=== PATIENT | male | born 1980 | race Caucasian/White ===

== ENCOUNTER 2016-08-09 06:51 | Emergency (ER) | payer OTHER ==
[~2016-08-09] VITALS: Ht 190.5 cm; Wt 100.0 kg
[2016-08-09 06:55] VITALS: BP 120/67; PULSE 83; RESP 18; O2SAT 100
--- NOTE | 2016-08-09 07:03 | ED.REPORT ---
HPI-General Illness Date of Service Aug 09, 2016 ED Provider: Amanuel Peña MD The patient is a 35 year old male who presents to the ED due to severe diarrhea starting last night. Pt reports that he has severe abdominal cramps and 4 episodes of watery, green diarrhea since onset and c/o associated nausea, fever , and productive cough with clear phlegm for 3 days. He describes his face was going numb just on the right side an hour ago and his lips are still numb. He went to [facility] previous to [facility] for the same symptoms, but after a failed IV attempt he got frustrated, angry, and stormed out of the hospital. Pt denies vomiting, hematochezia, dizziness, vertigo, or abnormal vision. He is allergic to Penicillin. 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 Nursing Notes Stated Complaint: ABDOMINAL PAIN Chief Complaint: Male Abdominal Pain Nursing Notes Reviewed: Yes Allergies: Coded Allergies: Penicillins (Verified Allergy, Unknown, 08/09/16) Scheduled PRN Promethazine (Promethazine) 25 Mg Tablet 25 MG PO Q6H PRN PRN For Nausea General Time Seen by MD: 07:03 Chief Complaint Diarrhea Hx Obtained From: Patient Arrived By: Walk-in Sudden in Onset?: Yes Onset Occurred: 1 day ago Symptom Duration: Since onset Location: : Abdomen Quality: Cramping Radiation: : Does not radiate Severity: Current: Mild Recent Healthcare: Recent doctor visit Similar Sx Previous: Yes Past Medical History Past Medical History Negative Past Surgical History denies Smoking History Current Every Day Smoker Social History Alcohol Use: Denies alcohol use Drug Use: In recovery, Other (heroin) Other Social History: Local resident Ambulatory Status Independent Review of Systems Full Review of Systems Constitutional: Reports: Fever Respiratory: Reports: Prod cough, clear GI: Reports: Abdominal pain (cramping), Diarrhea, Nausea, Denies: Hematochezia, Vomiting Neurologic: Reports: Numbness (fingers, lips, right side of face ), Denies: Dizziness Complete sys rev & neg: except as marked. Physical Exam Vital Signs Vital Signs Date Time Temp Pulse Resp B/P Pulse Ox O2 Delivery O2 Flow Rate FiO2 08/09/16 10:37 36.2 66 16 117/66 100 Room Air 08/09/16 10:00 66 16 117/66 100 Room Air 08/09/16 06:55 36.2 83 18 120/67 100 Room Air Initial VS: Reviewed General/Constitutional: Well-developed, Well-nourished Head / Eyes: Atraumatic, Normocephalic, PERRL ENT: Mucous membranes moist, Conjunctiva normal, No scleral icterus Neck: Supple, Non-tender, Full range of motion Respiratory: Breath sounds normal, Clear to auscultation, No respiratory distress Cardiovascular: Regular rate & rhythm, Heart sounds normal, Intact distal pulses Lymphatic: No lymphadenopathy Skin: Warm, Dry, No cyanosis Neurologic: Alert, Oriented, Nonfocal Psychiatric: Mood/affect normal, Behavior normal, Normal thought content Tenderness/Guarding/Rebound: Positive: Tender LLQ... (moderately), Tender RLQ... (moderately) Interpretation & Diagnostics Interpretation & Diagnostics: BRAIN MRI IMPRESSION: 1. No acute process. No recent infarct. 2. Sinus disease. Dictated by: Jerman Angulo M.D. on 08/09/2016 at 9:51 Approved by: Jerman Angulo M.D. on 08/09/2016 at 9:52 Lab Results Interpretation Result Diagram: 08/09/16 0740 08/09/16 0740 Test 08/09/16 07:40 White Blood Count 8.9th/mm3 (3.8-10.1) Red Blood Count 5.28mil/mm3 (4.40-5.80) Hemoglobin 15.4g/dL (13.8-17.2) Hematocrit 45.3% (41.0-50.0) Mean Corpuscular Volume 85.8fL (81-100) Mean Corpuscular Hemoglobin 29.2pg (27.0-35.0) Mean Corpuscular Hemoglobin Concent 34.0% (32.0-37.0) Red Cell Distribution Width 12.8% (12.3-15.4) Platelet Count 250bil/L (150-400) Neutrophils (%) (Auto) 69.3% (40-74) Lymphocytes (%) (Auto) 17.2% (14-46) Monocytes (%) (Auto) 11.8% (4-12) Eosinophils (%) (Auto) 1.0% (0-5) Basophils (%) (Auto) 0.5% (0-3) Sodium Level 139mEq/L (134-144) Potassium Level 3.5mEq/L (3.5-5.2) Chloride Level 98mEq/L (97-108) Carbon Dioxide Level 28mmol/L (18-29) Blood Urea Nitrogen 11mg/dL (6-20) Creatinine 0.74mg/dL (0.76-1.27) Estimat Glomerular Filtration Rate 129mL/min (>59) Glucose Level 106mg/dL (60-99) Calcium Level 9.1mg/dL (8.5-10.1) Magnesium Level 2.2mg/dL (1.6-2.6) Total Bilirubin 0.4mg/dL (0.0-1.2) Aspartate Amino Transf (AST/SGOT) 25U/L (0-50) Alanine Aminotransferase (ALT/SGPT) 29U/L (0-44) Alkaline Phosphatase 67U/L (25-150) Total Protein 7.8g/dL (6.4-8.4) Albumin 4.4g/dL (3.4-5.0) Lipase 23U/L (13-60) Re-Eval/Medical Decision Med Decision/Clinical Course Given the onset of the numbness in the fourth and fifth fingers of the right upper extremity prior to the onset of the GI symptoms it seemed prudent to definitively exclude a central nervous system problem. He also had transient right facial numbness as well. MRI of course is negative and I do not believe further evaluation for the neurologic deficit is necessary at this moment. GI symptoms or nicely controlled with symptomatic therapy. Time of Eval: 09:41 Patient Status: Mild relief, Pain improved Re-Evaluation/Progress Note: Pt rechecked. His friend reports that pain medication was effective and pt is experiencing mild relief. Counseled Regarding: Diagnosis, Lab results, Need for follow-up, When/why to return to ED Discharge & Departure Primary Impression: Facial numbness Additional Impressions: Numbness of right hand Gastroenteritis Disposition: Home Discharge Condition All VS Reviewed: Yes Condition: Stable Patient Instructions: Gastroenteritis (ED) Additional Instructions: After reviewing your imaging, there are no acute findings. No evidence of stroke or infection in the brain. Use promethazine as needed for nausea.. Return to the Emergency Department if you experience any new or worsening symptoms. We hope you feel better soon! Follow up with your regular outpatient provider if the numbness in your hand that does not resolve. Referrals: [facility] (PCP) Juan Aibtato Attestation Portion of this note were transcribed by Jimmy Page. I, Dr. Peña, personally performed the history, physical exam, and medical decision-making: I reviewed and confirmed the accuracy for the information in the transcribed note. Signed by: pb Yi, 08/09/16 0900 Amanuel Peña MD Aug 09, 2016 07:03 JIMMY PAGE Aug 09, 2016 07:23
[2016-08-09] MEDS ORDERED: 0.9% Sodium Chloride 1,000 ML IV ONE (07:13)
[2016-08-09] MEDS ORDERED: Promethazine Inj 25 MG in Dextrose 5%-Pha MIX 50 ML IV ONE (07:15)
[2016-08-09] MEDS ORDERED: Ondansetron 2 mg/mL 2 mL Inj IVPUSH PRN (07:15)
[2016-08-09 07:50] LABS: BASOPHILS % (AUTO) 0.5 % (0-3); MONOCYTES % (AUTO) 11.8 % (4-12); Mean Corpuscular Hemoglobin 29.2 pg (27.0-35.0); Mean Corpuscular Volume 85.8 fL (81-100); NEUTROPHILS % (AUTO) 69.3 % (40-74); Platelet Count 250 bil/L (150-400)
[2016-08-09 08:18] LABS: Magnesium 2.2 mg/dL (1.6-2.6)
--- NOTE | 2016-08-09 09:54 | DRSVH ---
PROCEDURE: MRI BRAIN WITHOUT CONTRAST ([id number]) INDICATIONS: right face and hand numbness TECHNIQUE: Noncontrast axial T1 spin echo, axial T2 fast spin echo, sagittal and axial FLAIR, coronal T2 fast sp in echo, axial gradient echo, axial diffusion and ADC through the brain. COMPARISON: None. FINDINGS: Image quality: Excellent. CSF Spaces: Is partially degraded by motion artifact. Brain: No intracranial masses or hemorrhage. Martinez/white matter interface is normal. Brainstem appe ars normal. Diffusion-weighted images demonstrate no acute ischemic insult. No chronic ischemic ins ults. Normal intravascular flow voids are present. Skull and face: Calvarium has normal marrow signal. Orbits appear normal. Sinuses: Mastoids are clear. Moderate right and mild left maxillary sinus mucosal thickening. Mild bi lateral ethmoid air cell mucosal thickening. Moderate sphenoid sinus mucosal thickening. IMPRESSION: 1. No acute process. No recent infarct. 2. Sinus disease. Dictated by: Jerman Angulo M.D. on 08/09/2016 at 9:51 Approved by: Jerman Angulo M.D. on 08/09/2016 at 9:52
[2016-08-09 10:00] VITALS: BP 117/66; PULSE 66; RESP 16; O2SAT 100
[2016-08-09] MEDS ORDERED: PROM25TA14 PO (10:20)
[2016-08-09 10:37] VITALS: BP 117/66; PULSE 66; RESP 16; O2SAT 100
== END 2016-08-09 10:39 | disposition home or self-care (01) ==
LOC: SED 06:51
DX: R20.2 Paresthesia of skin (principal); K52.9 Noninfective gastroenteritis and colitis, unspecified; R50.9 Fever, unspecified; R05 Cough; F17.200 Nicotine dependence, unspecified, uncomplicated; Z88.0 Allergy status to penicillin
CPT/HCPCS: 36415; 70551; 80053; 83690; 83735; 85025; 96361; 96374; 96375; 99285; J2405; J2550; J7030

== ENCOUNTER 2016-10-24 04:55 | Emergency (ER) | payer OTHER ==
[~2016-10-24] VITALS: Ht 190.5 cm; Wt 104.5 kg
[~2016-10-24 04:55] MED LIST: PROM25TA14 PO
[2016-10-24 05:17] VITALS: BP 148/81; PULSE 85; RESP 16; O2SAT 99
--- NOTE | 2016-10-24 06:11 | ED.REPORT ---
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 He states that the pain radiates up his left arm. Two days ago he attempted to drain the area at home, but reports that he was only able to elicit a small amount of drainage. Patient denies fever, chills, and history of abscesses. Nursing Notes Stated Complaint: LEFT ARM PAIN Chief Complaint: Skin Rash/Abscess Nursing Notes Reviewed: Yes Allergies: Coded Allergies: Penicillins (Verified Allergy, Unknown, 08/09/16) Scheduled Sulfamethoxazole/Trimeth 800-160 mg (Bactrim DS) 1 Each Tablet 1 TABLET PO BID Scheduled PRN Ibuprofen (Ibuprofen) 800 Mg Tablet 800 MG PO TID PRN PRN For Pain Promethazine (Promethazine) 25 Mg Tablet 25 MG PO Q6H PRN PRN For Nausea General Time Seen by MD: 06:09 Chief Complaint Abscess Hx Obtained From: Patient Arrived By: Walk-in Onset Occurred: 4 days ago Symptom Duration: Since onset Location: : Forearm Quality: Painful Severity: Current: Moderate Severity: Maximum: Moderate Pertinent Negative: Pt denies other symptoms Similar Sx Previous: No Past Medical History Past Medical History Negative Past Surgical History denies Smoking History Current Every Day Smoker Social History Alcohol Use: Denies alcohol use Drug Use: In recovery, Other Other Social History: Local resident Ambulatory Status Independent Review of Systems Constitutional: Denies: Chills, Fever GI: Denies: Diarrhea, Nausea, Vomiting Musculoskeletal: Reports: Extremity pain (Left Wrist) Skin: Denies Itching Complete sys rev & neg: except as marked. Physical Exam Initial Vital Signs Vital Signs (First) Date Time Temp Pulse Resp B/P Pulse Ox O2 Delivery O2 Flow Rate FiO2 10/24/16 05:17 37.0 85 16 148/81 99 Room Air Initial VS: Reviewed Head / Eyes: Atraumatic, Normocephalic Neck: Supple, Non-tender, Full range of motion Respiratory: Breath sounds normal, Clear to auscultation, No respiratory distress Cardiovascular: Regular rate & rhythm, Heart sounds normal, Intact distal pulses Psychiatric: Mood/affect normal, Behavior normal, Normal thought content General/Constitutional: Awake, Alert, Well developed, Well nourished Skin: Warm, Dry, Intact Upper Extremity / MS: Full range of motion, Neurologic intact, Vascular intact 1x1cm firm area to the left upper extremity on the distal radial aspect. No active drainage, mild surrounding erythema, no fluctuance. Neurologic: Oriented X3, Speech NL, No motor deficits, No sensory deficits Re-Eval/Medical Decision Med Decision/Clinical Course 36-year-old male IV drug user presenting with left arm cellulitis and abscess wrist. He reports he popped it and nothing came out. He does have a developing abscess but there is no fluctuance at this time. I discussed with patient and he declines incision and drainage at this time. He prefers trial of antibiotics.. Prescribed Bactrim. Recommended follow-up 1-2 days for reevaluation or return sooner if any new or worsening symptoms, fevers chills, nausea vomiting, weakness, numbness, tingling any other new or worsening symptoms. Re-Evaluation/Progress : Time of Eval: 06:22 Re-Evaluation/Progress Note: Discussed physical examination and plan to discharge. Patient is amenable to the plan. Return precautions given. All other questions addressed. Counseled Regarding: Diagnosis, Need for follow-up, When/why to return to ED Discharge & Departure Impression: Primary Impression: Abscess Additional Impression: Cellulitis Disposition: Home Discharge Condition All VS Reviewed: Yes Condition: Improved Patient Instructions: Abscess (ED), Cellulitis (DC) Additional Instructions: You have an abscess. Take the prescribed Bactrim as directed. It is important that you finish the entire course of this antibiotic, even if you are feeling better. Use the prescribed ibuprofen for pain. Follow-up with the primary care doctor at the number provided in 1-2 days. Return to the ER if you develop new or worsening pain, streaking redness up your arm, numbness/weakness/tingling, fever, chills, nausea, vomiting, or any other concerning symptoms. Referrals: [facility] Melanie Attestation Portions of this note were transcribed by Srinivas Tovar. I, Dr. Hardwick, personally performed the history, physical exam and medical decision-making; I reviewed and confirmed the accuracy of the information in the transcribed note. Signed by: Melanie Jeffers, 10/24/2016 at 06:24 copies to: [facility] Oliverio Hardwick MD October 24, 2016 06:10 SRINIVAS TOVAR October 24, 2016 06:21
[2016-10-24] MEDS ORDERED: IBUP800T28 PO (06:23)
[2016-10-24] MEDS ORDERED: SULF1TAB7 PO (06:23)
[2016-10-24 06:32] VITALS: BP 133/82; PULSE 94; RESP 20; O2SAT 98
[2016-10-24] MEDS ORDERED: Trimethoprim-Sulfa 160 mg-800 mg Tablet PO ONE (06:35)
== END 2016-10-24 06:25 | disposition home or self-care (01) ==
LOC: SED 04:55
DX: L02.414 Cutaneous abscess of left upper limb (principal); L03.114 Cellulitis of left upper limb; F15.21 Other stimulant dependence, in remission; F17.200 Nicotine dependence, unspecified, uncomplicated; Z88.0 Allergy status to penicillin